=== PATIENT | female | born 2000 | race Two or more races ===

== ENCOUNTER 2023-10-29 10:01 | Emergency (ER) | payer MEDICAID ==
[~2023-10-29] VITALS: Ht 157.5 cm; Wt 61.5 kg
[2023-10-29 11:19] LABS: Urine Bacteria FEW /hpf (None Seen); Urine Blood Negative /uL (Negative); Urine Clarity HAZY (Clear); Urine Color Yellow (Yellow); Urine Mucus FEW (None Seen); Urine Protein, UAD 1+ (Negative); Urine Specific Gravity 1.033 (1.001-1.035); Urine WBC 5 /hpf (0 - 5)
[2023-10-29 11:26] VITALS: BP 124/86; PULSE 91; RESP 16; TEMP 97.4; O2SAT 95
[2023-10-29 11:46] LABS: Basophils # (auto) 0 10 ^3/uL (0-0.2); Basophils % (auto) 0.4 % (0.0-2.0); Eosinophils # (auto) 0.1 10 ^3/uL (0-0.8); Eosinophils % (auto) 1.2 % (0.0-7.0); Hematocrit 38.3 % (36.0-46.0); Hemoglobin 13.3 g/dL (12.2-16.2); Lymphocytes # (auto) 2.2 10 ^3/uL (0.4-5.4); Lymphocytes % (auto) 19.2 % (10.0-50.0); Mean Corpuscular Hemoglobin 30.7 pg (28.0-32.0); Mean Corpuscular Hgb Conc. 34.7 g/dL (32.0-36.0); Mean Corpuscular Volume 88.4 fL (80.0-100.0); Monocytes # (auto) 0.7 10 ^3/uL (0-1.3); Monocytes % (auto) 5.8 % (0.0-12.0); Neutrophils # (auto) 8.4 10 ^3/uL (1.6-8.6); Neutrophils % (auto) 73.4 % (37.0-80.0); Red Blood Cells 4.33 10^6/uL (4.0-5.20); Red Cell Distribution Width 13.3 % (11.8-14.3); White Blood Cell 11.4 10^3/uL (4.4-10.8)
[2023-10-29] MEDS: ONDANSETRON ODT 4 MG TAB PO STA (12:00)
[2023-10-29 12:01] LABS: Chloride 102 mmol/L (98-107); Potassium 3.7 mmol/L (3.5-5.1); Sodium 137 mmol/L (136-145)
[2023-10-29] MEDS: SODIUM CHLORIDE 0.9% 1,000 ML IV STA (12:01)
[2023-10-29 12:02] LABS: Anion Gap 9 (5-15); Calcium 9.7 mg/dL (8.7-10.4); Carbon Dioxide 26 mmol/L (20-30)
[2023-10-29 12:07] LABS: BUN/Creatinine Ratio 10.5 (10.0-20.0); Blood Urea Nitrogen 6 mg/dL (9-23); Glucose 80 mg/dL (74-106); Lipase 39 U/L (12-53)
[2023-10-29] MEDS ORDERED: DOXY10TA PO (12:52)
[2023-10-29] MEDS ORDERED: NITR-87 PO (12:52)
== END 2023-10-29 13:46 | disposition home or self-care (01) ==
LOC: ER 10:01
DX: O21.8 Other vomiting complicating pregnancy (principal); R10.2 Pelvic and perineal pain; O23.41 Unspecified infection of urinary tract in pregnancy, first trimester; N39.0 Urinary tract infection, site not specified; Z79.2 Long term (current) use of antibiotics; Z79.899 Other long term (current) drug therapy; Z88.0 Allergy status to penicillin; Z88.1 Allergy status to other antibiotic agents; Z3A.11 11 weeks gestation of pregnancy
CPT/HCPCS: 36415; 80048; 81001; 83690; 84702; 85025; 87086; 96360; 99283; J7030; Q0162

== ENCOUNTER 2024-01-19 11:11 | Observation (INO) | payer MEDICAID ==
[~2024-01-19 11:11] MED LIST: DOXY10TA PO; NITR-87 PO
== END 2024-01-19 12:02 | disposition home or self-care (01) ==
LOC: LDRP 11:11 → UNDOADMOB 11:11 → LDRP 11:21
PROVIDERS: ADMIT Obstetrics & Gynecology; ATTEND Obstetrics & Gynecology
DX: O22.42 Hemorrhoids in pregnancy, second trimester (principal); Z3A.22 22 weeks gestation of pregnancy
CPT/HCPCS: 59025; 81002; 94760; G0378

== ENCOUNTER 2024-02-03 04:21 | Observation (INO) | payer MEDICAID ==
[~2024-02-03] VITALS: Ht 157.5 cm; Wt 62.6 kg
[2024-02-03] MEDS: LACTATED RINGER'S 1,000 ML IV ONE (05:31)
[2024-02-03] MEDS: ONDANSETRON HCL 4 MG/2 ML VIAL IV ONE (05:32)
[2024-02-03] MEDS ORDERED: PREN-96 PO (05:51)
== END 2024-02-03 06:41 | disposition home or self-care (01) ==
LOC: LDRP 04:21
PROVIDERS: ADMIT Obstetrics & Gynecology; ATTEND Obstetrics & Gynecology
DX: O26.892 Other specified pregnancy related conditions, second trimester (principal); R10.9 Unspecified abdominal pain; O21.2 Late vomiting of pregnancy; Z3A.24 24 weeks gestation of pregnancy; Z88.1 Allergy status to other antibiotic agents
CPT/HCPCS: 59025; 81002; 94760; 96361; 96374; G0378; J2405; 96360

== ENCOUNTER 2024-03-19 16:27 | Observation (INO) | payer MEDICAID ==
[~2024-03-19 16:27] MED LIST changes: +PREN-96 PO
== END 2024-03-19 17:27 | disposition home or self-care (01) ==
LOC: LDRP 16:27
PROVIDERS: ADMIT Obstetrics & Gynecology; ATTEND Obstetrics & Gynecology
DX: O47.03 False labor before 37 completed weeks of gestation, third trimester (principal); O26.893 Other specified pregnancy related conditions, third trimester; R10.30 Lower abdominal pain, unspecified; Z3A.31 31 weeks gestation of pregnancy; Z79.899 Other long term (current) drug therapy
CPT/HCPCS: 59025; 81002; 82948; 82962; G0378

== ENCOUNTER 2024-03-26 08:16 | Observation (INO) | payer MEDICAID ==
[2024-03-26] MEDS ORDERED: METF-1145 PO (09:34)
== END 2024-03-26 10:47 | disposition home or self-care (01) ==
LOC: UNDOADMOB 08:58 → LDRP 08:58 → UNDODISOB 10:47
PROVIDERS: ADMIT Obstetrics & Gynecology; ATTEND Obstetrics & Gynecology
DX: O24.419 Gestational diabetes mellitus in pregnancy, unspecified control (principal); Z3A.32 32 weeks gestation of pregnancy; Z88.0 Allergy status to penicillin
CPT/HCPCS: 76818; 82962; G0378; 59025; 81002; 82948; 94760

== ENCOUNTER 2024-03-29 13:50 | Observation (INO) | payer MEDICAID ==
[~2024-03-29] VITALS: Ht 157.5 cm; Wt 63.5 kg
[~2024-03-29 13:50] MED LIST changes: +METF-1145 PO
== END 2024-03-29 16:00 | disposition home or self-care (01) ==
LOC: LDRP 13:50 → UNDOADMOB 13:50 → LDRP 14:05
PROVIDERS: ADMIT Obstetrics & Gynecology; ATTEND Obstetrics & Gynecology
DX: O24.419 Gestational diabetes mellitus in pregnancy, unspecified control (principal); Z3A.32 32 weeks gestation of pregnancy; Z88.1 Allergy status to other antibiotic agents; Z88.0 Allergy status to penicillin
CPT/HCPCS: 59025; 76818; 81002; 82948; 94760; G0378

== ENCOUNTER 2024-04-02 13:06 | Observation (INO) | payer MEDICAID | END 2024-04-02 16:00 | disposition home or self-care (01) | LOC: LDRP 13:06 → UNDOADMOB 13:06 → LDRP 14:21 | PROVIDERS: ADMIT Obstetrics & Gynecology; ATTEND Obstetrics & Gynecology | DX: O24.419 Gestational diabetes mellitus in pregnancy, unspecified control (principal); Z3A.33 33 weeks gestation of pregnancy; Z88.0 Allergy status to penicillin | CPT/HCPCS: 59025; 76818; 81002; 82962; 94760; G0378 ==

== ENCOUNTER 2024-04-05 10:10 | Observation (INO) | payer MEDICAID ==
[~2024-04-05] VITALS: Ht 157.5 cm; Wt 63.5 kg
== END 2024-04-05 11:40 | disposition home or self-care (01) ==
LOC: UNDOADMOB 10:10 → LDRP 10:10 → UNDODISOB 11:40
PROVIDERS: ADMIT Obstetrics & Gynecology; ATTEND Obstetrics & Gynecology
DX: O24.419 Gestational diabetes mellitus in pregnancy, unspecified control (principal); Z3A.33 33 weeks gestation of pregnancy; Z88.0 Allergy status to penicillin
CPT/HCPCS: 59025; 76818; 81002; 82948; 94760; G0378

== ENCOUNTER 2024-04-09 08:28 | Observation (INO) | payer MEDICAID ==
[2024-04-09] MEDS ORDERED: ONDANSETRON ODT 4 MG TAB PO ONE (12:30)
== END 2024-04-09 12:51 | disposition home or self-care (01) ==
LOC: LDRP 10:58
PROVIDERS: ADMIT Obstetrics & Gynecology; ATTEND Obstetrics & Gynecology
DX: O24.419 Gestational diabetes mellitus in pregnancy, unspecified control (principal); Z3A.34 34 weeks gestation of pregnancy
CPT/HCPCS: 59025; 76818; 81002; 82948; 82962; 94760; G0378

== ENCOUNTER 2024-04-12 10:05 | Observation (INO) | payer MEDICAID | END 2024-04-12 11:47 | disposition home or self-care (01) | LOC: LDRP 10:05 → UNDOADMOB 10:05 → LDRP 10:07 | PROVIDERS: ADMIT Obstetrics & Gynecology; ATTEND Obstetrics & Gynecology | DX: O24.419 Gestational diabetes mellitus in pregnancy, unspecified control (principal); O62.9 Abnormality of forces of labor, unspecified; Z3A.34 34 weeks gestation of pregnancy; Z88.0 Allergy status to penicillin | CPT/HCPCS: 59025; 76818; 81002; 82948; 82962; 94760; G0378 ==

== ENCOUNTER 2024-04-12 21:30 | Observation (INO) | payer MEDICAID ==
[~2024-04-12] VITALS: Ht 157.5 cm; Wt 63.5 kg
[2024-04-12 22:10] LABS: Fern Testing Negative
[2024-04-12] MEDS: BETAMETHASONE ACET (30mg/5ml) 5ml Vial 6mg/ml IM ONE (22:29)
== END 2024-04-12 22:56 | disposition home or self-care (01) ==
LOC: LDRP 21:30
PROVIDERS: ADMIT Obstetrics & Gynecology; ATTEND Obstetrics & Gynecology
DX: O42.913 Preterm premature rupture of membranes, unspecified as to length of time between rupture and onset of labor, third trimester (principal); O24.419 Gestational diabetes mellitus in pregnancy, unspecified control; Z3A.34 34 weeks gestation of pregnancy; Z88.0 Allergy status to penicillin
CPT/HCPCS: 59025; 76815; 81002; 82948; 82962; 84112; 94760; 96372; G0378; J0702; Q0114

== ENCOUNTER 2024-04-13 21:49 | Observation (INO) | payer MEDICAID ==
[~2024-04-13] VITALS: Ht 157.5 cm; Wt 63.5 kg
[2024-04-13] MEDS: BETAMETHASONE ACET (30mg/5ml) 5ml Vial 6mg/ml IM SCH (22:34)
== END 2024-04-13 23:01 | disposition home or self-care (01) ==
LOC: LDRP 21:49
PROVIDERS: ADMIT Obstetrics & Gynecology; ATTEND Obstetrics & Gynecology
DX: O47.03 False labor before 37 completed weeks of gestation, third trimester (principal); Z3A.34 34 weeks gestation of pregnancy; Z88.0 Allergy status to penicillin
CPT/HCPCS: 59025; 81002; 94760; 96372; G0378

== ENCOUNTER 2024-04-15 04:38 | Observation (INO) | payer MEDICAID | END 2024-04-15 10:45 | disposition home or self-care (01) | LOC: LDRP 09:11 | PROVIDERS: ADMIT Obstetrics & Gynecology; ATTEND Obstetrics & Gynecology | DX: O24.419 Gestational diabetes mellitus in pregnancy, unspecified control (principal); O42.913 Preterm premature rupture of membranes, unspecified as to length of time between rupture and onset of labor, third trimester; Z3A.35 35 weeks gestation of pregnancy | CPT/HCPCS: 59025; 76818; 81002; 82948; 82962; 94760; G0378 ==

== ENCOUNTER 2024-04-16 12:09 | Observation (INO) | payer MEDICAID ==
[~2024-04-16] VITALS: Ht 157.5 cm; Wt 63.5 kg
== END 2024-04-16 13:26 | disposition home or self-care (01) ==
LOC: UNDOADMOB 12:09 → LDRP 12:09 → UNDODISOB 13:26
PROVIDERS: ADMIT Obstetrics & Gynecology; ATTEND Obstetrics & Gynecology
DX: O42.913 Preterm premature rupture of membranes, unspecified as to length of time between rupture and onset of labor, third trimester (principal); O24.419 Gestational diabetes mellitus in pregnancy, unspecified control; Z3A.33 33 weeks gestation of pregnancy
CPT/HCPCS: 59025; 76818; 81002; 82948; 82962; 94760; G0378

== ENCOUNTER 2024-04-19 09:06 | Observation (INO) | payer MEDICAID ==
[~2024-04-19] VITALS: Ht 162.6 cm; Wt 68.0 kg
[2024-04-19] MEDS ORDERED: LACTATED RINGER'S 1,000 ML IV ONE (11:00)
== END 2024-04-19 11:45 | disposition home or self-care (01) ==
LOC: LDRP 09:06
PROVIDERS: ADMIT Obstetrics & Gynecology; ATTEND Obstetrics & Gynecology
DX: O24.419 Gestational diabetes mellitus in pregnancy, unspecified control (principal); O32.1XX0 Maternal care for breech presentation, not applicable or unspecified; Z3A.35 35 weeks gestation of pregnancy; Z88.0 Allergy status to penicillin
CPT/HCPCS: 59025; 76818; 81002; 82948; 82962; 94760; 96360; G0378

== ENCOUNTER 2024-04-21 10:30 | Observation (INO) | payer MEDICAID | END 2024-04-21 12:35 | disposition home or self-care (01) | LOC: LDRP 10:57 | PROVIDERS: ADMIT Obstetrics & Gynecology; ATTEND Obstetrics & Gynecology | DX: O41.03X0 Oligohydramnios, third trimester, not applicable or unspecified (principal); O32.1XX0 Maternal care for breech presentation, not applicable or unspecified; Z3A.35 35 weeks gestation of pregnancy; Z88.0 Allergy status to penicillin | CPT/HCPCS: 59025; 76818; 81002; 94760; G0378 ==

== ENCOUNTER 2024-04-23 07:13 | Observation (INO) | payer MEDICAID ==
[~2024-04-23] VITALS: Ht 162.6 cm; Wt 68.0 kg
[2024-04-23] MEDS: ONDANSETRON HCL 4 MG/2 ML VIAL IV ONE (07:50)
[2024-04-23] MEDS: LACTATED RINGER'S 1,000 ML IV ONE (07:50)
[2024-04-23 08:35] LABS: COVID19 ANTIGEN SOFIA FIA NEGATIVE (NEGATIVE)
[2024-04-23 08:45] LABS: Basophils # (auto) 0 10 ^3/uL (0-0.2); Basophils % (auto) 0.3 % (0.0-2.0); Eosinophils # (auto) 0 10 ^3/uL (0-0.8); Eosinophils % (auto) 0.2 % (0.0-7.0); Hematocrit 33.9 % (36.0-46.0); Hemoglobin 11.2 g/dL (12.2-16.2); Lymphocytes # (auto) 5.2 10 ^3/uL (0.4-5.4); Lymphocytes % (auto) 46.2 % (10.0-50.0); Mean Corpuscular Hemoglobin 27.3 pg (28.0-32.0); Mean Corpuscular Hgb Conc. 33.1 g/dL (32.0-36.0); Mean Corpuscular Volume 82.7 fL (80.0-100.0); Monocytes # (auto) 0.8 10 ^3/uL (0-1.3); Monocytes % (auto) 6.9 % (0.0-12.0); Neutrophils # (auto) 5.3 10 ^3/uL (1.6-8.6); Neutrophils % (auto) 46.4 % (37.0-80.0); Nucleated Red Blood Cells % 0.1 %; Red Blood Cells 4.11 10^6/uL (4.0-5.20); Red Cell Distribution Width 15.1 % (11.8-14.3); White Blood Cell 11.3 10^3/uL (4.4-10.8)
[2024-04-23 08:50] LABS: Urine Bacteria FEW /hpf (None Seen); Urine Blood Negative /uL (Negative); Urine Clarity Turbid (Clear); Urine Color Colorless (Yellow); Urine Protein, UAD Negative (Negative); Urine Specific Gravity 1.014 (1.001-1.035); Urine Urobilinogen Normal (Negative); Urine WBC 4 /hpf (0 - 5); Urine pH 6.5 (5.0-9.0)
[2024-04-23 09:06] LABS: INR 0.96 (0.9-1.15); Partial Thromboplastin Time 23.4 SEC (24.5-34.5); Prothrombin Time 10.2 sec (9.3-11.8)
[2024-04-23 09:15] LABS: Alanine Aminotransferase 43 U/L (7-40); Alkaline Phosphatase 149 U/L (46-116); Amylase 91 U/L (30-118); Anion Gap 10 (5-15); BUN/Creatinine Ratio 14.3 (10.0-20.0); Blood Urea Nitrogen 6 mg/dL (9-23); Calcium 9.2 mg/dL (8.7-10.4); Carbon Dioxide 21 mmol/L (20-30); Chloride 106 mmol/L (98-107); Glucose 108 mg/dL (74-106); Potassium 3.8 mmol/L (3.5-5.1); Sodium 137 mmol/L (136-145)
[2024-04-23 09:16] LABS: Amphetamine Screen, Urine Neg (NEGATIVE); Barbiturate Scree,Urine Neg (NEGATIVE)
[2024-04-23 09:16] LABS: Albumin 3.6 g/dL (3.2-4.8); Aspartate Aminotransferase 24 U/L (13-40); Bilirubin, Total 0.4 mg/dL (0.2-1.0)
[2024-04-23 09:19] LABS: Benzodiazephine Screen, Urine Neg (NEGATIVE); Cannabinoid Screen, Urine Neg (NEGATIVE); Cocaine Screen, Urine Neg (NEGATIVE); Opiate Scree,Urine Neg (NEGATIVE); Phencyclidine Screen, Urine Neg (NEGATIVE)
[2024-04-23 10:53] LABS: Lipase 35 U/L (12-53)
== END 2024-04-23 11:23 | disposition home or self-care (01) ==
LOC: LDRP 07:13
PROVIDERS: ADMIT Obstetrics & Gynecology; ATTEND Obstetrics & Gynecology
DX: O21.2 Late vomiting of pregnancy (principal); O99.613 Diseases of the digestive system complicating pregnancy, third trimester; K52.9 Noninfective gastroenteritis and colitis, unspecified; O99.283 Endocrine, nutritional and metabolic diseases complicating pregnancy, third trimester; E86.0 Dehydration; O32.1XX0 Maternal care for breech presentation, not applicable or unspecified; Z3A.36 36 weeks gestation of pregnancy; Z79.899 Other long term (current) drug therapy; Z20.822 Contact with and (suspected) exposure to COVID-19
CPT/HCPCS: 36415; 59025; 76818; 80053; 80307; 81001; 81002; 82150; 82948; 82962; 83690; 85025; 85610; 85730; 87426; 94760; 96361; 96374; G0378; J2405; 96360

== ENCOUNTER 2024-04-25 13:05 | Observation (INO) | payer MEDICAID | END 2024-04-25 15:12 | disposition home or self-care (01) | LOC: LDRP 13:05 → UNDOADMOB 13:05 → LDRP 13:13 | PROVIDERS: ADMIT Obstetrics & Gynecology; ATTEND Obstetrics & Gynecology | DX: O24.419 Gestational diabetes mellitus in pregnancy, unspecified control (principal); O42.913 Preterm premature rupture of membranes, unspecified as to length of time between rupture and onset of labor, third trimester; Z3A.36 36 weeks gestation of pregnancy; Z79.899 Other long term (current) drug therapy | CPT/HCPCS: 59025; 76818; 81002; 82948; 82962; 94760; G0378 ==

== ENCOUNTER 2024-04-28 08:07 | Observation (INO) | payer MEDICAID ==
[~2024-04-28] VITALS: Ht 157.5 cm; Wt 64.0 kg
== END 2024-04-28 09:34 | disposition home or self-care (01) ==
LOC: LDRP 08:07
PROVIDERS: ADMIT Obstetrics & Gynecology; ATTEND Obstetrics & Gynecology
DX: O41.03X0 Oligohydramnios, third trimester, not applicable or unspecified (principal); O24.419 Gestational diabetes mellitus in pregnancy, unspecified control; Z3A.36 36 weeks gestation of pregnancy; Z79.899 Other long term (current) drug therapy
CPT/HCPCS: 59025; 76818; 81002; 82948; 94760; G0378

== ENCOUNTER 2024-04-30 08:05 | Observation (INO) | payer MEDICAID | END 2024-04-30 09:39 | disposition home or self-care (01) | LOC: UNDOADMOB 08:05 → LDRP 08:05 | PROVIDERS: ADMIT Obstetrics & Gynecology; ATTEND Obstetrics & Gynecology | DX: O24.419 Gestational diabetes mellitus in pregnancy, unspecified control (principal); O32.1XX0 Maternal care for breech presentation, not applicable or unspecified; Z3A.37 37 weeks gestation of pregnancy | CPT/HCPCS: 59025; 76818; 81002; 82948; 82962; 94760; G0378 ==

== ENCOUNTER 2024-05-03 08:06 | Observation (INO) | payer MEDICAID | END 2024-05-03 09:38 | disposition home or self-care (01) | LOC: LDRP 08:06 | PROVIDERS: ADMIT Obstetrics & Gynecology; ATTEND Obstetrics & Gynecology | DX: O24.419 Gestational diabetes mellitus in pregnancy, unspecified control (principal); Z3A.37 37 weeks gestation of pregnancy; Z88.0 Allergy status to penicillin | CPT/HCPCS: 59025; 76818; 81002; 82948; 82962; 94760; G0378 ==

== ENCOUNTER 2024-05-05 21:38 | Observation (INO) | payer MEDICAID ==
[~2024-05-05] VITALS: Ht 157.5 cm; Wt 64.4 kg
[2024-05-05 22:39] LABS: Fern Testing Negative
[2024-05-05] MEDS ORDERED: LACTATED RINGER'S 1,000 ML IV SCH (22:45)
[2024-05-05] MEDS: LACTATED RINGER'S 1,000 ML IV ONE (23:19)
== END 2024-05-06 01:07 | disposition home or self-care (01) ==
LOC: LDRP 21:38
PROVIDERS: ADMIT Obstetrics & Gynecology; ATTEND Obstetrics & Gynecology
DX: O42.913 Preterm premature rupture of membranes, unspecified as to length of time between rupture and onset of labor, third trimester (principal); Z3A.37 37 weeks gestation of pregnancy; Z79.899 Other long term (current) drug therapy
CPT/HCPCS: 59025; 76818; 81002; 82948; 82962; 84112; 94760; 96360; 96361; G0378; Q0114

== ENCOUNTER 2024-05-07 08:04 | Observation (INO) | payer MEDICAID | END 2024-05-07 10:16 | disposition home or self-care (01) | LOC: UNDOADMOB 08:04 → LDRP 08:04 → UNDODISOB 10:16 | PROVIDERS: ADMIT Obstetrics & Gynecology; ATTEND Obstetrics & Gynecology | DX: O24.419 Gestational diabetes mellitus in pregnancy, unspecified control (principal); O32.1XX0 Maternal care for breech presentation, not applicable or unspecified; Z79.899 Other long term (current) drug therapy; Z3A.38 38 weeks gestation of pregnancy | CPT/HCPCS: 59025; 76818; 81002; 82948; 82962; G0378 ==

== ENCOUNTER 2024-05-10 08:06 | Observation (INO) | payer MEDICAID | END 2024-05-10 10:00 | disposition home or self-care (01) | LOC: UNDOADMOB 08:06 → LDRP 08:06 → UNDODISOB 10:00 | PROVIDERS: ADMIT Obstetrics & Gynecology; ATTEND Obstetrics & Gynecology | DX: O24.419 Gestational diabetes mellitus in pregnancy, unspecified control (principal); Z3A.38 38 weeks gestation of pregnancy; Z88.0 Allergy status to penicillin; Z88.1 Allergy status to other antibiotic agents | CPT/HCPCS: 59025; 76818; 81002; 82948; 82962; 94760; G0378 ==

== ENCOUNTER 2024-05-13 10:14 | Inpatient (IN) | payer MEDICAID ==
[~2024-05-13] VITALS: Ht 157.5 cm; Wt 63.5 kg
[2024-05-13 10:59] LABS: Basophils # (auto) 0 10 ^3/uL (0-0.2); Basophils % (auto) 0.3 % (0.0-2.0); Eosinophils # (auto) 0 10 ^3/uL (0-0.8); Eosinophils % (auto) 0.3 % (0.0-7.0); Hematocrit 33.7 % (36.0-46.0); Hemoglobin 11.4 g/dL (12.2-16.2); Lymphocytes # (auto) 2.5 10 ^3/uL (0.4-5.4); Lymphocytes % (auto) 29.6 % (10.0-50.0); Mean Corpuscular Hemoglobin 27.5 pg (28.0-32.0); Mean Corpuscular Hgb Conc. 33.7 g/dL (32.0-36.0); Mean Corpuscular Volume 81.6 fL (80.0-100.0); Monocytes # (auto) 0.3 10 ^3/uL (0-1.3); Monocytes % (auto) 3.4 % (0.0-12.0); Neutrophils # (auto) 5.6 10 ^3/uL (1.6-8.6); Neutrophils % (auto) 66.4 % (37.0-80.0); Nucleated Red Blood Cells % 0.1 %; Platelet Count (auto) 297 10^3/uL (140-450); Red Blood Cells 4.13 10^6/uL (4.0-5.20); Red Cell Distribution Width 16.5 % (11.8-14.3); White Blood Cell 8.4 10^3/uL (4.4-10.8)
[2024-05-13 11:04] LABS: Urine Bacteria FEW /hpf (None Seen); Urine Blood Negative /uL (Negative); Urine Color Light-Yellow (Yellow); Urine Mucus FEW (None Seen); Urine Protein, UAD TRACE (Negative); Urine Specific Gravity 1.017 (1.001-1.035); Urine Urobilinogen Normal (Negative); Urine WBC 7 /hpf (0 - 5)
[2024-05-13 11:13] LABS: Urine Clarity Hazy (Clear)
[2024-05-13 11:18] LABS: INR 0.94 (0.9-1.15); Partial Thromboplastin Time 24.4 SEC (24.5-34.5)
[2024-05-13 11:34] LABS: Amphetamine Screen, Urine Neg (NEGATIVE); Barbiturate Scree,Urine Neg (NEGATIVE); Benzodiazephine Screen, Urine Neg (NEGATIVE); Cannabinoid Screen, Urine Neg (NEGATIVE); Cocaine Screen, Urine Neg (NEGATIVE); Opiate Scree,Urine Neg (NEGATIVE); Phencyclidine Screen, Urine Neg (NEGATIVE)
[2024-05-13 11:37] LABS: Alanine Aminotransferase 20 U/L (7-40); Albumin 3.9 g/dL (3.2-4.8); Alkaline Phosphatase 175 U/L (46-116); Anion Gap 9 (5-15); Aspartate Aminotransferase 21 U/L (13-40); BUN/Creatinine Ratio 16.4 (10.0-20.0); Bilirubin, Total 0.4 mg/dL (0.2-1.0); Blood Urea Nitrogen 10 mg/dL (9-23); Carbon Dioxide 20 mmol/L (20-30); Chloride 107 mmol/L (98-107); Glucose 137 mg/dL (74-106); Potassium 3.9 mmol/L (3.5-5.1); Sodium 136 mmol/L (136-145); Total Protein 6.6 g/dL (5.7-8.2)
[2024-05-14] VITALS (16 sets, daily range): BP systolic 98–120; BP diastolic 50–77; PULSE 54–89; RESP 16; TEMP 97.8–98.4; O2SAT 96–100
[2024-05-14] MEDS: LACTATED RINGER'S 1,000 ML IV ONE (05:43)
[2024-05-14] MEDS: ceFAZolin 2 GM/D5W50ml 50 ML IV ONE (07:04)
[2024-05-14] MEDS: TETRACAINE 1% INJ 2 ML VIAL IJ ONE (07:24)
[2024-05-14] MEDS ORDERED: MIDAZOLAM HCL 2MG/2ML 2ml VIAL (1mg/ml) ONE (07:26)
[2024-05-14] MEDS ORDERED: fentaNYL CITRATE 100 MCG/2 ML VL ONE (07:26)
[2024-05-14] MEDS ORDERED: MORPHINE SULF PF 5 MG/10 ML VIAL ONE (07:26)
[2024-05-14] MEDS ORDERED: oxyTOCIN 10 UNIT/ML 10ML VIAL ONE (07:59)
[2024-05-14] MEDS ORDERED: ePHEDrine SULFATE 50 MG/ML AMP IV PRN (08:45)
[2024-05-14] MEDS ORDERED: HYDROmorphone HCL 2 MG/ML VL/or syr IV PRN ×2 (08:45)
[2024-05-14] MEDS ORDERED: NALOXONE HCL 0.4 MG/ML VIAL IV PRN (08:45)
[2024-05-14] MEDS ORDERED: MORPHINE SULFATE 4 MG/ML SYR/VIAL IV PRN (08:45)
[2024-05-14] MEDS ORDERED: DexAMETHasone SOD PHOS 10MG/1ML VIAL INJ IV PRN (08:45)
[2024-05-14] MEDS ORDERED: ONDANSETRON HCL 4 MG/2 ML VIAL IV PRN (08:45)
[2024-05-14] MEDS ORDERED: MIDAZOLAM HCL 2MG/2ML 2ml VIAL (1mg/ml) IV PRN (08:45)
[2024-05-14] MEDS: LACTATED RINGER'S 1,000 ML IV SCH (09:53)
[2024-05-14] MEDS: ONDANSETRON HCL 4 MG/2 ML VIAL IV ONE (11:35)
[2024-05-14] MEDS: ACETAMINOPHEN IV 1000 MG/100ML (10MG/ML) IV SCH (12:48)
[2024-05-14] MEDS: diphenhdrAMINE HCL 50 MG/1 ML VL IV PRN (14:02)
[2024-05-14] MEDS: ceFAZolin 1GM/50ML 50 ML IV SCH (15:26)
[2024-05-14] MEDS: KETOROLAC TROMETH 30 MG/ML 1ML VIAL IV PRN (16:32)
[2024-05-15] VITALS (13 sets, daily range): BP systolic 102–120; BP diastolic 58–77; PULSE 82–110; RESP 16–20; TEMP 98–98.8; O2SAT 95–100
[2024-05-15] MEDS: AMMONIA 0.33 ML INHALANT IN ONE ×2 (00:50→00:53)
[2024-05-15 05:11] LABS: Basophils # (auto) 0 10 ^3/uL (0-0.2); Eosinophils # (auto) 0 10 ^3/uL (0-0.8); Eosinophils % (auto) 0.2 % (0.0-7.0); Hemoglobin 8.4 g/dL (12.2-16.2); Lymphocytes # (auto) 2.4 10 ^3/uL (0.4-5.4); Monocytes # (auto) 0.4 10 ^3/uL (0-1.3)
[2024-05-15 05:13] LABS: Basophils % (auto) 0.2 % (0.0-2.0); Hematocrit 24.6 % (36.0-46.0); Lymphocytes % (auto) 23.1 % (10.0-50.0); Mean Corpuscular Hemoglobin 27.8 pg (28.0-32.0); Mean Corpuscular Hgb Conc. 34.2 g/dL (32.0-36.0); Mean Corpuscular Volume 81.3 fL (80.0-100.0); Monocytes % (auto) 3.9 % (0.0-12.0); Neutrophils # (auto) 7.5 10 ^3/uL (1.6-8.6); Neutrophils % (auto) 72.6 % (37.0-80.0); Platelet Count (auto) 224 10^3/uL (140-450); Red Blood Cells 3.03 10^6/uL (4.0-5.20); Red Cell Distribution Width 16.5 % (11.8-14.3); White Blood Cell 10.3 10^3/uL (4.4-10.8)
[2024-05-15 08:06] LABS: RPR Non Reactive (Non Reactive)
[2024-05-15] MEDS ORDERED: HYDROcodone-ACET 5/325MG TAB PO PRN (08:30)
[2024-05-15] MEDS: HYDROcodone-ACET 5/325MG TAB PO PRN (08:44)
[2024-05-15] MEDS: DOCUSATE CALCIUM 240 MG CAP PO SCH (10:32)
[2024-05-15] MEDS: FERROUS SULFATE 325mg EC TAB PO SCH (10:32)
[2024-05-15] MEDS: DOCUSATE SOD 100 MG CAP PO SCH (10:33)
[2024-05-15] MEDS: SIMETHICONE 80 MG CHEWABLE TABLET PO SCH (11:19)
[2024-05-15] MEDS: IBUPROFEN 800 MG TAB PO PRN (21:09)
[2024-05-16] MEDS ORDERED: IBUP-1455 PO (01:54)
[2024-05-16] MEDS ORDERED: FER325T PO (01:54)
[2024-05-16] MEDS ORDERED: DOCU-265 PO (01:54)
[2024-05-16] MEDS ORDERED: HYDR-4902 PO (01:54)
[2024-05-16 03:30] VITALS: BP 110/64; PULSE 77; RESP 16; TEMP 98.6; O2SAT 98
[2024-05-16 06:30] VITALS: BP 111/70; PULSE 87; RESP 18; TEMP 98; O2SAT 96
[2024-05-16 07:45] LABS: Basophils # (auto) 0 10 ^3/uL (0-0.2); Basophils % (auto) 0.3 % (0.0-2.0); Eosinophils # (auto) 0.1 10 ^3/uL (0-0.8); Eosinophils % (auto) 1.6 % (0.0-7.0); Hemoglobin 8.7 g/dL (12.2-16.2); Lymphocytes # (auto) 2.4 10 ^3/uL (0.4-5.4); Lymphocytes % (auto) 28.5 % (10.0-50.0); Mean Corpuscular Hemoglobin 27.2 pg (28.0-32.0); Mean Corpuscular Hgb Conc. 33.3 g/dL (32.0-36.0); Mean Corpuscular Volume 81.8 fL (80.0-100.0); Monocytes # (auto) 0.4 10 ^3/uL (0-1.3); Monocytes % (auto) 5.1 % (0.0-12.0); Neutrophils # (auto) 5.5 10 ^3/uL (1.6-8.6); Neutrophils % (auto) 64.5 % (37.0-80.0); Nucleated Red Blood Cells % 0.1 %; Platelet Count (auto) 226 10^3/uL (140-450); Red Blood Cells 3.18 10^6/uL (4.0-5.20); Red Cell Distribution Width 16.9 % (11.8-14.3); White Blood Cell 8.6 10^3/uL (4.4-10.8)
[2024-05-16 11:00] VITALS: BP 121/79; PULSE 100; RESP 18; TEMP 98; O2SAT 96
== END 2024-05-16 11:35 | disposition home or self-care (01) | DRG 540 ==
LOC: LAB 10:14 → UNDOADMIN 05-14 05:01 → LDRP 05-14 05:01 → UNDOADMIN 05-14 05:09 → LDRP 05-14 18:14
PROVIDERS: ADMIT Obstetrics & Gynecology; ATTEND Obstetrics & Gynecology
PROC: 10D00Z1 Extraction of Products of Conception, Low, Open Approach (ICD-10-PCS; principal; 2024-05-14 07:41)
DX: O32.1XX0 Maternal care for breech presentation, not applicable or unspecified (principal); O24.425 Gestational diabetes mellitus in childbirth, controlled by oral hypoglycemic drugs; Z3A.39 39 weeks gestation of pregnancy; Z37.0 Single live birth; Z88.0 Allergy status to penicillin; O90.81 Anemia of the puerperium
CPT/HCPCS: 36415; 76815; 80053; 80307; 81001; 82948; 82962; 85025; 85610; 85730; 86592; 86803; 86850; 86900; 86901; 94760; 94762; 96360; 96361; 96374; 96375; G0378; J0131; J1885; J2250; J2405; J2590